=== PATIENT | female | born 2000 | race Two or more races ===

== ENCOUNTER 2024-11-26 07:27 | Outpatient (CLI) | payer OTHER ==
[2024-12-02] MEDS ORDERED: CYCLOBENZAPRINE10 MG PO (12:33)
== END 2024-11-26 07:28 | disposition home or self-care (01) ==
LOC: NUCLEAR 07:27
PROVIDERS: ATTEND Internal Medicine Rheumatology
DX: M25.50 Pain in unspecified joint (principal)